=== PATIENT | male | born 1985 | race Caucasian/White ===

== ENCOUNTER 2022-01-13 07:01 | Emergency (ER) | payer MEDICAID, SELFPAY ==
[2022-01-13 07:05] VITALS: BP 155/102; PULSE 97; RESP 20; TEMP 36.7; O2SAT 96; BMI 36.6
--- NOTE | 2022-01-13 07:43 | ED_ITS ---
HPI - General Adult General Date Seen: 01/13/22 <Edilma Corbin MD - Last Filed: 01/15/22 15:54> Chief complaint: Unspecified Complaint, Adult <Edilma Corbin MD - Last Filed: 01/15/22 15:54> Stated complaint: Heartburn <Edilma Corbin MD - Last Filed: 01/15/22 15:54> Time Seen by Provider: 01/13/22 07:30 <Edilma Corbin MD - Last Filed: 01/15/22 15:54> Source: patient <Edilma Corbin MD - Last Filed: 01/15/22 15:54> History of Present Illness HPI narrative: Patient is a 36-year-old male who presents with lower chest and epigastric pain which has been present for 2 days. He says that he was drinking quite a bit on Saturday and Saturday, which is unusual for him. Pain has been present since then. It has not gone away at all since it started. It does not radiate. It is not associated with shortness of breath, nausea or vomiting. He has not any black or bloody stools. Has no history of similar pain. He has tried some Pepto-Bismol and Tums but those have not relieved his symptoms. Pain is not exacerbated by exertion or relieved by rest. It is not positional. It is worsened with eating, so he has been eating just small amounts of bland foods such as crackers. describes it as feeling like heartburn, and it is [id number] in intensity. He does not usually drink a lot. He does not take a lot of NSAIDs. He said he lost about 45 lb last year but has gained at least 30 of those lb back. He does not have any history of previous heart disease. He has a grandfather who had multiple heart attacks but parents and siblings do not have any history of heart disease. <Edilma Corbin MD - Last Filed: 01/15/22 15:54> Related Data Home medications: Home Medications Medication Instructions Recorded Confirmed eletriptan 01/13/22 Previous Rx's Medication Instructions Recorded omeprazole 20 mg capsule,delayed 20 mg PO DAILY #30 cap 01/13/22 release sucralfate 100 mg/mL oral 10 ml PO QID PRN #414 ml 01/13/22 suspension <Edilma Corbin MD - Last Filed: 01/15/22 15:54> Allergies/adverse reactions: Allergies Allergy/AdvReac Type Severity Reaction Status Date / Time Penicillins Allergy Verified 01/13/22 07:22 <Edilma Corbin MD - Last Filed: 01/15/22 15:54> Review of Systems Status of ROS: Reports: 10 or more systems reviewed and unremarkable except as noted in History and below <Edilma Corbin MD - Last Filed: 01/15/22 15:54> [facility] Social History: Social History Smoking Status: Unknown if ever smoked Second hand tobacco smoke exposure: No How often do you have a drink containing alcohol: monthly or less How often do you have six or more drinks on one occasion: Less than monthly AUDIT-C Alcohol total score: 2 Non-prescribed substance use: denies use <Edilma Corbin MD - Last Filed: 01/15/22 15:54> Exam Narrative: Exam Narrative: Vital signs as below. In general, an alert, nontoxic male. He is overweight. Head: Normocephalic, atraumatic. Eyes: Pupils equal reactive. Conjunctivae are normal. ENT: Mucous membranes are moist. Neck: Supple without adenopathy. Heart: Regular rate and rhythm. No murmur. Lungs: Clear without wheezes or crackles. No increased work of breathing. Abdomen: Soft and nontender. No rebound guarding or rigidity. Back: No CVA tenderness. Extremities: Well perfused, pulses intact. No edema or tenderness. Neurologic: Alert, oriented to person and place. Speech fluent. Face symmetric. Moves extremities equally. Gait stable. Skin: Warm and dry. Well perfused. Affect: Normal. <Edilma Corbin MD - Last Filed: 01/15/22 15:54> Const: Vital Signs, click to edit/add: Vital Signs - 24 hr 01/13/22 07:05 Temperature 98.1 F Pulse Rate [Right Pulse Oximeter] 97 Respiratory Rate 20 Blood Pressure [Ri ght Upper Arm] 155/102 H Pulse Oximetry 96 <Edilma Corbin MD - Last Filed: 01/15/22 15:54> Vital Signs, click to edit/add: Vital Signs - 24 hr 01/13/22 07:05 Temperature 98.1 F Pulse Rate [Right Pulse Oximeter] 97 Respiratory Rate 20 Blood Pressure [Ri ght Upper Arm] 155/102 H Pulse Oximetry 96 <Luis M Sow MD - Last Filed: 01/13/22 08:27> Documenting provider has reviewed patient's vital signs: yes <Edilma Corbin MD - Last Filed: 01/15/22 15:54> Course Course Hospital Course: An EKG by my review shows a normal sinus rhythm, ventricular rate of 95 beats per minute. No acute ST segment changes. He is mildly hypertensive here. Overall, my suspicion for this being cardiac is relatively low. Symptoms have been present for 2 days straight. Aside from him being significantly overweight he does not have cardiac risk factors. I do think it is reasonable to check a troponin and this is pending. He does not have significant epigastric tenderness to raise suspicion for gallbladder disease, pancreatitis, or hepatitis. Liver function tests and lipase are pending as well. We will go ahead and try a GI cocktail as I do think gastritis and/or peptic ulcer disease are most likely. If labs are negative, then I think most reasonable course of action is to try him on a PPI to start. Reviewed with him that this can take a few days to provide relief, and in the meantime he may benefit from some Carafate. Patient will be signed out to Dr. Sow to follow up on labs. Ple ase see his addendum for final disposition and plan. <Edilma Corbin MD - Last Filed: 01/15/22 15:54> Vital Signs Vital signs: Initial Vital Signs Temperature 98.1 F 01/13/22 07:05 Temperature Source Temporal Artery Scan 01/13/22 07:05 Pulse Rate 97 01/13/22 07:05 Respiratory Rate 20 01/13/22 07:05 Blood Pressure 155/102 H 01/13/22 07:05 Blood Pressure Mean 119 01/13/22 07:05 Blood Pressure Position Sitting 01/13/22 07:05 Pulse Oximetry 96 01/13/22 07:05 Oxygen Delivery Method 01/13/22 07:05 Vital Signs Temperature 98.1 F 01/13/22 07:05 Pulse Rate 97 01/13/22 07:05 Respiratory Rate 20 01/13/22 07:05 Blood Pressure 155/102 H 01/13/22 07:05 Pulse Oximetry 96 01/13/22 07:05 Temperature 98.1 F 01/13/22 07:05 Pulse Rate 97 01/13/22 07:05 Respiratory Rate 20 01/13/22 07:05 Blood Pressure 155/102 H 01/13/22 07:05 Pulse Oximetry 96 01/13/22 07:05 <Edilma Corbin MD - Last Filed: 01/15/22 15:54> Initial Vital Signs Temperature 98.1 F 01/13/22 07:05 Temperature Source Temporal Artery Scan 01/13/22 07:05 Pulse Rate 97 01/13/22 07:05 Respiratory Rate 20 01/13/22 07:05 Blood Pressure 155/102 H 01/13/22 07:05 Blood Pressure Mean 119 01/13/22 07:05 Blood Pressure Position Sitting 01/13/22 07:05 Pulse Oximetry 96 01/13/22 07:05 Oxygen Delivery Method 01/13/22 07:05 Vital Signs Temperature 98.1 F 01/13/22 07:05 Pulse Rate 97 01/13/22 07:05 Respiratory Rate 20 01/13/22 07:05 Blood Pressure 155/102 H 01/13/22 07:05 Pulse Oximetry 96 01/13/22 07:05 Temperature 98.1 F 01/13/22 07:05 Pulse Rate 97 01/13/22 07:05 Respiratory Rate 20 01/13/22 07:05 Blood Pressure 155/102 H 01/13/22 07:05 Pulse Oximetry 96 01/13/22 07:05 <Luis M Sow MD - Last Filed: 01/13/22 08:27> Medical Decision Making MDM Narrative Medical decision making narrative: This patient's care was transferred to sd at the end of Dr. Dover shift. Lab results returned with reassuring findings. His lipase is normal. His liver enzymes are just slightly elevated. Troponin is negative. His symptoms and lab results are consistent with a gastritis. He is okay to be discharged home with prescriptions for a proton pump inhibitor and Carafate. <Luis M Sow MD - Last Filed: 01/13/22 08:27> Lab Data Labs: Lab Results 07/03/2901/13/22 01/13/22 Range/Units 07:55 07:55 07:55 WBC 8.97 (4.50-11.00) K/uL RBC 5.22 (4.30-5.90) m/uL Hgb 16.2 (13.5-17.5) gm/dL Hct 48.1 (37.0-53.0) % MCV 92 (80-100) fL MCH 31 (26-34) pg MCHC 34 (32-36) gm/dL RDW Coeff of Raymond 12.6 (11.5-15.5) % Plt Count 199 (140-440) K/uL Neut % (Auto) 61.0 (42.0-72.0) % Lymph % (Auto) 29.2 (20-44) % [place] % (Auto) 8.0 (0.0-11.0) % Eos % (Auto) 1.4 (0.0-7.0) % Baso % (Auto) 0.3 (0.0-3.0) % Neut # (Auto) 5.46 (1.7-7.0) K/uL Lymph # (Auto) 2.62 (0.90-2.90) K/uL [place] # (Auto) 0.70 (0.00-0.90) K/UL Eos # (Auto) 0.13 (0.00-0.50) K/uL Baso # (Auto) 0.03 (0.00-0.30) K/uL Abs Immat Gran (auto) 0.01 (0.00-0.30) K/uL Total Bilirubin 1.1 (0.1-1.5) mg/dL Direct Bilirubin 0.3 (0.0-0.5) mg/dL AST 59 H (12-35) U/L ALT 53 H (4-50) U/L Alkaline Phosphatase 102 (40-150) U/L Total Protein 6.6 (6.0-8.3) g/dL Albumin 4.0 (3.3-5.0) g/dL Lipase 107 (23-300) U/L POC Troponin I 0.00 L (0.01-0.04) ng/ml <Edilma Corbin MD - Last Filed: 01/15/22 15:54> Lab Results 01/13/22 01/13/22 01/13/22 Range/Units 07:55 07:55 07:55 WBC 8.97 (4.50-11.00) K/uL RBC 5.22 (4.30-5.90) m/uL Hgb 16.2 (13.5-17.5) gm/dL Hct 48.1 (37.0-53.0) % MCV 92 (80-100) fL MCH 31 (26-34) pg MCHC 34 (32-36) gm/dL RDW Coeff of Raymond 12.6 (11.5-15.5) % Plt Count 199 (140-440) K/uL Neut % (Auto) 61.0 (42.0-72.0) % Lymph % (Auto) 29.2 (20-44) % [place] % (Auto) 8.0 (0.0-11.0) % Eos % (Auto) 1.4 (0.0-7.0) % Baso % (Auto) 0.3 (0.0-3.0) % Neut # (Auto) 5.46 (1.7-7.0) K/uL Lymph # (Auto) 2.62 (0.90-2.90) K/uL [place] # (Auto) 0.70 (0.00-0.90) K/UL Eos # (Auto) 0.13 (0.00-0.50) K/uL Baso # (Auto) 0.03 (0.00-0.30) K/uL Abs Immat Gran (auto) 0.01 (0.00-0.30) K/uL Total Bilirubin 1.1 (0.1-1.5) mg/dL Direct Bilirubin 0.3 (0.0-0.5) mg/dL AST 59 H (12-35) U/L ALT 53 H (4-50) U/L Alkaline Phosphatase 102 (40-150) U/L Total Protein 6.6 (6.0-8.3) g/dL Albumin 4.0 (3.3-5.0) g/dL Lipase 107 (23-300) U/L POC Troponin I 0.00 L (0.01-0.04) ng/ml <Luis M Sow MD - Last Filed: 01/13/22 08:27> Discharge Plan Discharge Clinical Impression: Gastritis <Edilma Corbin MD - Last Filed: 01/15/22 15:54> Patient Disposition: Home, Self-Care <Edilma Corbin MD - Last Filed: 01/15/22 15:54> Condition: Stable <Edilma Corbin MD - Last Filed: 01/15/22 15:54> Instructions: Gastritis (ED) <Edilma Corbin MD - Last Filed: 01/15/22 15:54> Additional Instructions: Medications as prescribed. Follow-up with primary care clinic if not im proving over the next week. Return any time for severe or worsening pain, vomiting, fevers, black or bloody stools, or other significant worsening. Avoid alcohol and NSAIDs such as ibuprofen for now. <Edilma Corbin MD - Last Filed: 01/15/22 15:54> Prescriptions: New sucralfate 100 mg/mL suspension 10 ml PO QID PRNQty: 414 2RF Rx Instructions: swish in mouth and swallow; use after food/drink omeprazole 20 mg capsule,delayed release(DR/EC) 20 mg PO DAILY Qty: 30 2RF No Action eletriptan [Relpax] 0RF <Edilma Corbin MD - Last Filed: 01/15/22 15:54> Stand Alone Forms: [facility] Info Instructions <Edilma Corbin MD - Last Filed: 01/15/22 15:54>
[2022-01-13] MEDS: GI COCKTAIL (VISC LIDO/ANTACID) 30 ML PO (07:52)
--- NOTE | 2022-01-13 07:59 | PC.NURSE ---
labs done, POC Trop running, GI cocktail given
[2022-01-13 08:10] LABS: Basophils Absolute Auto 0.03 K/uL (0.00-0.30); Basophils Percent Auto 0.3 % (0.0-3.0); Eosinophils Absolute Auto 0.13 K/uL (0.00-0.50); Eosinophils Percent Auto 1.4 % (0.0-7.0); Hematocrit 48.1 % (37.0-53.0); Hemoglobin* 16.2 gm/dL (13.5-17.5); Immature Granulocytes Abs Auto 0.01 K/uL (0.00-0.30); Lymphocytes Absolute Auto 2.62 K/uL (0.90-2.90); Lymphocytes Percent Auto 29.2 % (20-44); Mean Corpuscular HGB Conc 34 gm/dL (32-36); Mean Corpuscular Hemoglobin 31 pg (26-34); Mean Corpuscular Volume 92 fL (80-100); Neutrophils Absolute Auto 5.46 K/uL (1.7-7.0); Platelet Count* 199 K/uL (140-440); RDW Coefficient of Variation % 12.6 % (11.5-15.5); Red Blood Count 5.22 m/uL (4.30-5.90); White Blood Count* 8.97 K/uL (4.50-11.00)
[2022-01-13 08:11] LABS: Slide Review Reflex No
[2022-01-13 08:17] LABS: Bilirubin Direct* 0.3 mg/dL (0.0-0.5); Bilirubin Total* 1.1 mg/dL (0.1-1.5); Total Protein* 6.6 g/dL (6.0-8.3)
[2022-01-13 08:18] LABS: Alanine Aminotransferase* 53 U/L (4-50); Alkaline Phosphatase* 102 U/L (40-150); Aspartate Amino Transferase* 59 U/L (12-35); Lipase* 107 U/L (23-300)
== END 2022-01-13 08:36 | disposition home or self-care (01) ==
PROVIDERS: Emergency Provider Emergency Medicine
DX: K29.70 Gastritis, unspecified, without bleeding (principal)
CPT/HCPCS: 36415; 80076; 83690; 84484; 85025; 99284; 99285; A9270

== ENCOUNTER 2025-01-13 15:35 | Emergency (ER) | payer OTHER, SELFPAY ==
[2025-01-13 15:41] VITALS: BP 155/94; PULSE 106; RESP 22; TEMP 36.2; O2SAT 95; BMI 45.3
--- NOTE | 2025-01-13 15:58 | ED_ITS ---
HPI - General Adult General Chief complaint: Headache/Migraine Stated complaint: Migraines Time Seen by Provider: 01/13/25 15:37 History of Present Illness HPI narrative: Patient is a 39 year white male has had a history of migraine headaches. He lives in [place]. He has had 2 day history of a migraine. He last had 1 about a year ago. He had Relpax in the past that helped him a lot. He has had no fever, chills, shortness of breath, chest pain. He has had no focal neurologic deficit, no thunderclap headache, no neck stiffness. He is interested in getting a prescription for some medication and needs a note for work. He did miss yesterday and today with work. He feels like he is down to a 1/10 in terms of the headache. When asked if he wants any treatment for that he declines at this time. He feels this is a standard migraine for him. Related Data Previous Rx's ?Medication ?Instructions ?Recorded omeprazole 20 mg capsule,delayed 20 mg PO DAILY #30 ca ps 01/13/22 release sucralfate 100 mg/mL oral 10 ml PO QID PRN #414 mL 03/29 suspension eletriptan 20 mg tablet (Relpax) See Rx Instructions P O .COMPLEX 01/13/25 #14 tabs Allergies Allergy/AdvReac Type Severity Reaction Status Date / Time Penicillins Allergy Verified 01/13/25 15:39 Review of Systems Status of ROS: Reports: 6 or more systems reviewed and unremarkable except as noted in History and below PFS PFS Social History Smoking Status: Current every day smoker What tobacco products do you use: cigarettes Smoking packs per day: 0.5 Smoking cigarettes per day: 10.0 Second hand tobacco smoke exposure: No How often do you have a drink containing alcohol: monthly or less How often do you have six or more drinks on one occasion: Less than monthly AUDIT-C Alcohol total score: 2 Non-prescribed substance use: denies use Exam Narrative: Exam Narrative: Objective: Patient's HEENT is unremarkable, pupils aggression light Blood pressure just minimally elevated pulse 106 No distress Alert orient x3 No focal neurologic deficit patient is moving his arms and legs normally he is ambulatory. Const: Vital Signs, click to edit/add: Vital Signs - 24 hr 01/13/25 15:41 Temperature 97.2 F L Pulse Rate [Pulse Oximeter] 106 H Respiratory Rate 22 Blood Pressure [Ri ght Forearm] 155/94 H Pulse Oximetry 95 Oxygen Delivery Me thod Room Air Course Vital Signs Vital signs: Initial Vital Signs Temperature 97.2 F L 01/13/25 15:41 Temperature Source Temporal Artery Scan 01/13/25 15:41 Pulse Rate 106 H 01/13/25 15:41 Respiratory Rate 22 01/13/25 15:41 Blood Pressure 155/94 H 01/13/25 15:41 Blood Pressure Mean 114 H 01/13/25 15:41 Pulse Oximetry 95 01/13/25 15:41 Oxygen Delivery Method Room Air 01/13/25 15:41 Vital Signs Temperature 97.2 F L 01/13/25 15:41 Pulse Rate 106 H 01/13/25 15:41 Respiratory Rate 22 01/13/25 15:41 Blood Pressure 155/94 H 01/13/25 15:41 Pulse Oximetry 95 01/13/25 15:41 Oxygen Delivery Method Room Air 01/13/25 15:41 Temperature 97.2 F L 01/13/25 15:41 Pulse Rate 106 H 01/13/25 15:41 Respiratory Rate 22 01/13/25 15:41 Blood Pressure 155/94 H 01/13/25 15:41 Pulse Oximetry 95 01/13/25 15:41 Oxygen Delivery Method Room Air 01/13/25 15:41 Medical Decision Making MDM Narrative Medical decision making narrative: [age] year white male with history of migraine headaches with a 2 day history of migraine that now is largely resolved. He declines treatment at this time but does wish to have some preventative medicine. I think it be reasonable to refill his Relpax. I would recommend he see if primary care physician within the next couple of weeks to discuss his headaches and ongoing management. Recommend fluids. Light activity today. No written for off work yesterday and today. He likely be able to resume work tomorrow. As mentioned had no thunderclap nature of the headache, no fevers, chills, infectious symptoms. Nurse's rotate he had some looser stool yesterday but he has not had any today and do not think this is an infectious agent nor do I think this is subarachnoid hemorrhage. Discharge Plan Discharge Clinical Impression: Migraine Patient Disposition: Home, Self-Care Condition: Stable Additional Instructions: Recommend he follow up with regular primary care physician the next week to 2 weeks to discuss her headaches. Will call in relpax to your pharmacy. Return as needed. Light activity today, then may resume normal activity tomorrow. Instructions on year her Relpax will be on the prescription. Activity Level: Light activity Discharge Diet: Regular Prescriptions: New eletriptan [Relpax] 20 mg tablet See Rx Instructions .ROUTE .COMPLEX Qty: 14 0RF Rx Instructions: take 1 tab at onset of headache; if no relief may repeat 1 tab after at least 2 hrs; max = 4 tabs/24 hr No Action sucralfate 100 mg/mL suspension 10 ml PO QID PRNQty: 414 2RF Rx Instructions: swish in mouth and swallow; use after food/drink omeprazole 20 mg capsule,delayed release(DR/EC) 20 mg PO DAILY Qty: 30 2RF Follow Up/Referrals: Provider,Not a Local [Primary Care Provider, Family Practice] Stand Alone Forms: [employer] Info Instructions
== END 2025-01-13 16:21 | disposition home or self-care (01) ==
LOC: ED 16:04
PROVIDERS: Emergency Provider Family Medicine
DX: G43.909 Migraine, unspecified, not intractable, without status migrainosus (principal)
CPT/HCPCS: 99283